=== PATIENT | male | born 1950 | race Caucasian/White ===

== ENCOUNTER 2017-07-11 08:29 | Outpatient (CLI) | payer MEDICARE | END 2017-07-11 08:30 | disposition home or self-care (01) | LOC: BICULT 08:29 | PROVIDERS: ATTEND Internal Medicine Gastroenterology | DX: K74.60 Unspecified cirrhosis of liver (principal); K76.0 Fatty (change of) liver, not elsewhere classified; Z90.49 Acquired absence of other specified parts of digestive tract | CPT/HCPCS: 76705 ==

== ENCOUNTER 2018-01-26 08:00 | Day surgery (SDC) | payer MEDICARE ==
[2018-01-26] MEDS ORDERED: Ondansetron HCl/PF 4 MG/2 ML Vial IVP PRN (12:26)
[2018-01-26] MEDS ORDERED: Meperidine HCl/PF 25 MG/ML VIAL SLOW IVP PRN (12:26)
[2018-01-26] MEDS ORDERED: Promethazine HCl 25 MG/ML VIAL IM PRN (12:26)
[2018-01-26] MEDS ORDERED: HYDROmorphone 2 MG/ML VIAL SLOW IVP PRN (12:26)
[2018-01-26] MEDS ORDERED: Promethazine HCl 25 MG/ML VIAL SLOW IVP PRN (12:26)
--- NOTE | 2018-01-26 14:03 | HP ---
CHIEF COMPLAINT: Lower abdominal pain. HISTORY OF PRESENT ILLNESS: This is a 67-year-old male who has a history of cirrhosis with previous paracentesis in 2009, quit drinking then, cirrhosis is more controlled now, he has not had any issues since, presents with 3 days of lower abdominal discomfort, became more localized in the right lower quadrant today. Pain is 8/10 and sharp, does not radiate. Nothing makes it better, sent over from [facility] in [place]. He was given Zosyn there. Denies history of chronic abdominal pain, infl ammatory bowel disease or Crohn's. PAST MEDICAL HISTORY: Includes allergies, asthma and cirrhosis. PAST SURGICAL HISTORY: Laparoscopic cholecystectomy. MEDICINES TAKEN: See list. ALLERGIES: No known drug allergies. SOCIAL HISTORY: Nondrinker now. No smoking or other drugs. REVIEW OF SYSTEMS: Ten system review of systems is otherwise negative unless described above. PHYSICAL EXAMINATION: HEENT: Sclerae are anicteric. Oropharynx clear. NECK: No lymphadenopathy. CHEST: Clear. HEART: Regular rate and rhythm. ABDOMEN: Soft, tender in the right lower quadrant, localized guarding, no rebound, no abdominal edwige ias. EXTREMITIES: No ischemia or edema to extremities. CT shows acute appendicitis, small infrarenal aneurysm, multiple left lobe lesions and recommend foll owup MRI. PLAN: Laparoscopic appendectomy. Risks, benefits, alternatives discussed. He gives consent. We wi ll do this today.
[2018-01-26] MEDS ORDERED: HYDROcodone/Acetaminophen 5/325 mg Tablet ONE (14:46)
[2018-01-26] MEDS ORDERED: PROPOFOL 200 MG/20 ML VIAL ONE (15:27)
[2018-01-26] MEDS ORDERED: Lidocaine 1% PF 5 ML VIAL ONE (15:27)
[2018-01-26] MEDS ORDERED: PHENYLEPHRINE-NS 100 MCG/ML 10 ML SYRINGE ONE (15:27)
[2018-01-26] MEDS ORDERED: Succinylcholine Chloride 20 MG/ML 10 ml SYRINGE FS ONE (15:27)
--- NOTE | 2018-01-26 18:45 | OP ---
DATE OF PROCEDURE: 01/26/2018 PREOPERATIVE DIAGNOSIS: Acute appendicitis. POSTOPERATIVE DIAGNOSIS: Acute appendicitis. PROCEDURE: Laparoscopic appendectomy. SURGEON: Zack Kent MD ANESTHESIA: General. ESTIMATED BLOOD LOSS: Minimal. COMPLICATIONS: None. SPECIMEN: Appendix. FINDINGS: Appendicitis. TECHNIQUE: The patient was taken to the operating room and placed supine on the table. After general anesthetic was obtained, the abdomen was shaved, prepped, and draped in a sterile fashion. A Mayes catheter had been placed. Incision was made above the umbilicus to cautery dissect down to and score the fascia. Abdominal cavity entered bluntly using a Nadia clamp. Holding stitch of PDS placed on each side of the fascia. Ugarte trocar was placed up pneumoperitoneum was obtained. Suprapubic murm ur port left lower quadrant 5 murmur port were placed under direct visualization. Cecum was rolled o lennie to reveal acute appendicitis monocytes made at the base of the appendix. Laparoscopic stapler wa s fired across the base of the appendix. A vascular reload was fired across the mesoappendix. Appen farrah placed in Endo catch bag and brought out through the Ugarte. A bleeder on the staple line was cl ipped. The right lower quadrant and pelvis was irrigated using sterile solution until returns are cl ear. There was no damage to any intraabdominal structures. All port sites are infiltrated using loc al anesthetic. All ports are removed under camera visualization. Pneumoperitoneum was let down. PD S was used to close the fascial defect above the umbilicus. All incisions were irrigated and closed using 4-0 Monocryl and Dermabond. The patient was en route to recovery in stable condition. All ins trument counts, needle counts, lap counts were correct.
== END 2018-01-26 15:15 | disposition home or self-care (01) ==
LOC: ERS 08:00 → SDC 12:46
PROVIDERS: ATTEND Surgery
PROC: 0DTJ4ZZ Resection of Appendix, Percutaneous Endoscopic Approach (ICD-10-PCS; principal; 2018-01-26)
DX: K35.80 Unspecified acute appendicitis (principal); K74.60 Unspecified cirrhosis of liver; J45.909 Unspecified asthma, uncomplicated; Z79.899 Other long term (current) drug therapy
CPT/HCPCS: 88304; 96374; J2001; J2270; J2704

== ENCOUNTER 2018-03-06 09:22 | Outpatient (CLI) | payer MEDICARE ==
--- NOTE | 2018-03-06 12:30 | MRI ---
MRI ABDOMEN WITH CONTRAST ONLY: Date: 03/06/18 HISTORY: K74.60 cirrhosis. COMPARISON: Ultrasound dated 07/11/17. FINDINGS: Exam is limited as it is with only and not with and without contrast. Therefore, diffusion and T2-jennifer ghted sequences are not obtained, nor was in and out performed. There are multiple nonenhancing foci of both kidneys suggesting cysts. There is dilatation of the inf rarenal abdominal aorta measuring up to 3.3 cm for a craniocaudad length of approximately 4.5 cm. The re are cirrhotic changes of the liver with a nodular contour. No arterial hyperenhancing mass on the portal venous phase with area of poor enhancement segment 4B near the falciform ligament which is not significantly evaluated on this examination and may reflect focal fat. Cirrhotic enhancement of fibr osis is seen in hepatic segment 7 and 8. Spleen is enlarged. Portal vein is patent. No adenopathy. Pancreas is unremarkable. Adrenal glands are unremarkable. No dilated loops of bowel i n the upper abdomen. No abnormal enhancing marrow signal abnormality. IMPRESSION: 1. Incomplete examination as this is a contrast exam only and not a with and without contrast study. No abnormal arterial hyperenhancing mass. 2. Focal poorly enhancing foci within hepatic segment 4B on the portal venous phase which does reny nue to have some very slight decreased enhancement throughout the remainder of the phase and this may reflect focal fat. Given the lack of arterial hyperenhancement and good phases of contrast, this is less likely to be a mass. Follow-up MRI liver protocol in 6 months to 1 year is recommended. 3. Multiple bilateral renal nonenhancing foci, likely cysts, with the right interpolar/superior pole exophytic cystic structure in the mid cortex having a single enhancing septation. Close attention on follow-up imaging is recommended. 4. Infrarenal abdominal aortic aneurysm measuring up to 3.4 cm in size with a craniocaudad length of approximately 4.8 cm. POS: C
[2018-03-06] MEDS ORDERED: Gadobenate Dimeglumine 529 MG/1 ML (20ML VIAL) ONE (12:38)
== END 2018-03-06 09:23 | disposition home or self-care (01) ==
LOC: BICMRI 09:22
PROVIDERS: ATTEND Internal Medicine Gastroenterology
DX: K74.60 Unspecified cirrhosis of liver (principal); R93.2 Abnormal findings on diagnostic imaging of liver and biliary tract; K76.0 Fatty (change of) liver, not elsewhere classified; D12.6 Benign neoplasm of colon, unspecified; I71.4 Abdominal aortic aneurysm, without rupture
CPT/HCPCS: 74182; 82565; A9579

== ENCOUNTER 2018-11-05 14:33 | Outpatient (CLI) | payer MEDICARE ==
--- NOTE | 2018-11-05 17:08 | MRI ---
MRI OF THE ABDOMEN WITHOUT AND WITH CONTRAST: 11/05/18 HISTORY: Cirrhosis. COMPARISON: 03/06/18. TECHNIQUE: Multiplanar and multisequence MRI images were obtained of the abdomen without and with IV contrast. FINDINGS: There is a macronodular appearance of the liver consistent with cirrhosis. The gallbladder is absent. There is a stable area of decreased enhancement on the arterial and portal venous phases immediately adjacent to the falciform ligament on image 30 of 64. This becomes isointense on the delayed phase i mages without washout. No other liver lesions are seen. There are nonenhancing well circumscribed foci of high T2 signal in the bilateral kidneys measuring u p to 7.5 cm in size which represents cysts. The adrenal glands, spleen, and pancreas are unremarkable . No abdominal adenopathy is seen. There is ectasia of the infrarenal aorta which measures 3.8 cm i n greatest dimension. IMPRESSION: 1. Cirrhosis without suspicious liver lesions identified. 2. Bilateral renal cysts. 3. Ectasia of the infrarenal aorta. POS: ASHISH
== END 2018-11-05 14:34 | disposition home or self-care (01) ==
LOC: BICMRI 14:33
PROVIDERS: ATTEND Internal Medicine Gastroenterology
DX: D12.6 Benign neoplasm of colon, unspecified (principal); K74.60 Unspecified cirrhosis of liver; K76.0 Fatty (change of) liver, not elsewhere classified; G47.30 Sleep apnea, unspecified; N28.1 Cyst of kidney, acquired; I77.811 Abdominal aortic ectasia; R93.2 Abnormal findings on diagnostic imaging of liver and biliary tract; Z80.0 Family history of malignant neoplasm of digestive organs
CPT/HCPCS: 74183; 82565

== ENCOUNTER 2019-07-02 12:02 | Outpatient (CLI) | payer MEDICARE ==
--- NOTE | 2019-07-02 14:17 | MRI ---
MRI ABDOMEN WITH AND WITHOUT CONTRAST: TECHNIQUE: Multiplanar, multisequence MR images were obtained of the abdomen with and without IV contrast. COMPARISON: 11/05/2018 03/06/2018 FINDINGS: There are well circumscribed foci of high T2 signal in the bilateral kidneys, measuring up to 7.2 cm in size, which represent cysts. The liver is cirrhotic in appearance. No suspicious hepatic abnormali ties are seen. The gallbladder has been removed. The adrenal glands, spleen and pancreas are unremarkable. There is ectasia of the infrarenal aorta, which measures 4.1 cm in greatest dimension. No marrow sign al abnormality is present. No abdominal adenopathy is seen. IMPRESSION: 1. Cirrhosis without suspicious liver lesions identified. 2. Bilateral renal cysts. 3. Ectasia of the infrarenal aorta. POS: CET
[2019-07-02] MEDS ORDERED: Magnevist 469MG/ML 20 ML VIAL ONE (14:54)
== END 2019-07-02 12:03 | disposition home or self-care (01) ==
LOC: BICMRI 12:02
PROVIDERS: ATTEND Internal Medicine Gastroenterology
DX: K74.60 Unspecified cirrhosis of liver (principal); K76.0 Fatty (change of) liver, not elsewhere classified; N28.1 Cyst of kidney, acquired; I77.811 Abdominal aortic ectasia
CPT/HCPCS: 74183; 82565; A9579

== ENCOUNTER 2019-12-21 09:48 | Outpatient (CLI) | payer MEDICARE ==
--- NOTE | 2019-12-21 12:24 | CT ---
CT ANGIOGRAM OF CHEST WITH IV CONTRAST AND 3D POSTPROCESSING: Date: 12/21/2019 HISTORY: Thoracic aneurysm, heart murmur, SVT. FINDINGS: There are vascular calcifications. The ascending thoracic aorta measures 3.5 cm and the descending th oracic aorta measures 2.8 cm. No intimal flap is seen to suggest dissection. No pleural or pericardia l effusions are identified. No mediastinal, hilar, or axillary lymphadenopathy seen. No pneumothoraces, focal areas of consolidation, or lung masses are seen. There is a 5 mm peripheral nodule in the right upper lobe. The tracheobronchial tree is normal. There are degenerative changes i n the spine. Upper abdominal tomograms demonstrate changes of cirrhosis of the liver and bilateral renal cysts. There is bilateral gynecomastia. IMPRESSION: 1. No CT evidence of thoracic aortic aneurysm/dissection. 2. Peripheral 5 mm right upper lobe lung nodule. A follow-up CT scan of the chest is recommended in 6 months. 3. Cirrhosis of liver. 4. Bilateral renal cysts. 5. Bilateral gynecomastia. CODE LN POS: MELQUIADES
[2019-12-21] MEDS ORDERED: Iopamidol-370 76% 500 ML 1 ML ONE (13:29)
== END 2019-12-21 09:49 | disposition home or self-care (01) ==
LOC: BICCT 09:48
PROVIDERS: ATTEND Internal Medicine Cardiovascular Disease
DX: I47.1 Supraventricular tachycardia (principal); I71.2 Thoracic aortic aneurysm, without rupture; R01.1 Cardiac murmur, unspecified; R91.1 Solitary pulmonary nodule; K74.60 Unspecified cirrhosis of liver; N28.1 Cyst of kidney, acquired; N62 Hypertrophy of breast
CPT/HCPCS: 71275; 82565; Q9967

== ENCOUNTER 2023-02-06 17:55 | Inpatient (IN) | payer MEDICARE ==
[2023-02-06] MEDS ORDERED: dilTIAZem 125 MG/25 ML SDV ONE (18:25)
[2023-02-06] MEDS ORDERED: Aspirin Chewable 81 MG TAB ONE (18:25)
[2023-02-06] MEDS ORDERED: dilTIAZem 25 MG/5 ML VIAL ONE (18:25)
[2023-02-06 18:45] LABS: #Basophils 0.1 thou/uL (0.0-0.2); #Eosinphils 0.1 thou/uL (0.0-0.7); #Monocytes 0.9 thou/uL (0.11-0.59); #Neutrophils 5.9 thou/uL (1.40-6.50); %Basophils 0.6 % (0.0-1.0); %Eosinophils 0.6 % (0.0-10.0); %Monocytes 10.2 % (0.0-10.0); %Neutrophils 69.9 % (42.0-75.0); Hematocrit 52.3 % (42.0-52.0); Hemoglobin 18.1 g/dL (14.0-18.0); Mean Corpuscular HGB CONC 34.6 g/dL (32.0-36.0); Mean Corpuscular Hemoglobin 34.7 pg (27.0-31.0); Mean Corpuscular Volume 100.2 fl (78.0-98.0); Mean Platelet Volume 11.6 fL (7.4-10.4); RBC Distribution Width 12.9 % (11.5-14.5); Red Blood Cell (RBC) Count 5.22 mill/uL (4.70-6.10); White Blood Cell (WBC) Count 8.5 10x3/uL (4.8-10.8)
[2023-02-06 18:47] LABS: Platelet Count 113 10x3/uL (130-400)
[2023-02-06 19:06] LABS: ALT (SGPT) 39 U/L (8-55); AST (SGOT) 28 U/L (5-34); Albumin 4.5 g/dL (3.4-4.8); Alkaline Phosphatase 60 U/L (40-110); Anion Gap 14 mmol/L (10-20); BUN (Urea Nitrogen) 12 mg/dL (8.4-25.7); Bilirubin, Total 1.3 mg/dL (0.2-1.2); Calc. Creatinine Clearance 0 mL/min (70-130); Calcium 9.6 mg/dL (7.8-10.44); Carbon Dioxide 28 mmol/L (23-31); Chloride 101 mmol/L (98-107); Estimated GFR 65; Glucose 90 mg/dL (83-110); Potassium 3.9 mmol/L (3.5-5.1); Protein, Total 7.5 g/dL (5.8-8.1); Sodium 139 mmol/L (136-145)
[2023-02-06 19:11] LABS: Troponin I Less than 0.010 ng/mL (< 0.028)
[2023-02-06] MEDS ORDERED: Furosemide 40 MG/4 ML VIAL ONE (19:30)
[2023-02-06] MEDS ORDERED: Acetaminophen 325 MG TAB PO PRN (20:58)
[2023-02-06] MEDS ORDERED: Senokot S 8.6-50 MG TAB PO PRN (20:58)
[2023-02-06] MEDS ORDERED: Ondansetron ODT 4 MG TAB PO PRN (20:58)
[2023-02-06] MEDS ORDERED: Calcium Carbonate 500 MG ChewTAB PO PRN (20:58)
[2023-02-06 22:26] LABS: Troponin I Less than 0.010 ng/mL (< 0.028)
[2023-02-06] MEDS ORDERED: Methocarbamol 500 MG TAB PO PRN (22:38)
[2023-02-06] MEDS ORDERED: HYDROcodone/Acetaminophen 5/325 mg Tablet PO SCH (22:45)
[2023-02-06 22:46] VITALS: BMI 33.5
[2023-02-06] MEDS: Carvedilol 3.125 MG TAB PO SCH (22:54)
[2023-02-06] MEDS: Famotidine 20 MG TAB PO SCH (22:54)
[2023-02-06] MEDS: Ipratropium/Albuterol 3 ML NEB NEB SCH (23:31)
[2023-02-07 01:40] LABS: Troponin I Less than 0.010 ng/mL (< 0.028)
[2023-02-07 04:09] LABS: #Basophils 0.1 thou/uL (0.0-0.2); #Eosinphils 0.1 thou/uL (0.0-0.7); #Monocytes 0.7 thou/uL (0.11-0.59); #Neutrophils 4.5 thou/uL (1.40-6.50); %Basophils 0.8 % (0.0-1.0); %Eosinophils 1.7 % (0.0-10.0); %Lymphocytes 19.5 % (21.0-51.0); %Neutrophils 67.5 % (42.0-75.0); Hematocrit 45.5 % (42.0-52.0); Hemoglobin 15.7 g/dL (14.0-18.0); Mean Corpuscular HGB CONC 34.5 g/dL (32.0-36.0); Mean Corpuscular Hemoglobin 34.7 pg (27.0-31.0); Mean Corpuscular Volume 100.7 fl (78.0-98.0); Mean Platelet Volume 11.8 fL (7.4-10.4); Platelet Count 94 10x3/uL (130-400); RBC Distribution Width 12.9 % (11.5-14.5); Red Blood Cell (RBC) Count 4.52 mill/uL (4.70-6.10); White Blood Cell (WBC) Count 6.6 10x3/uL (4.8-10.8)
[2023-02-07 04:36] LABS: ALT (SGPT) 28 U/L (8-55); AST (SGOT) 21 U/L (5-34); Albumin 3.7 g/dL (3.4-4.8); Alkaline Phosphatase 52 U/L (40-110); BUN (Urea Nitrogen) 14 mg/dL (8.4-25.7); Bilirubin, Total 1.1 mg/dL (0.2-1.2); Calc. Creatinine Clearance 84 mL/min (70-130); Calcium 8.7 mg/dL (7.8-10.44); Carbon Dioxide 26 mmol/L (23-31); Chloride 102 mmol/L (98-107); Estimated GFR 71; Globulin 2.2 g/dL (2.4-3.5); Glucose 119 mg/dL (83-110); Magnesium 1.8 mg/dL (1.6-2.6); Potassium 3.3 mmol/L (3.5-5.1); Protein, Total 5.9 g/dL (5.8-8.1); Sodium 139 mmol/L (136-145)
[2023-02-07] MEDS: dilTIAZem 125 MG in Sodium Chloride 0.9% 100 ML IVPB SCH ×2 (04:44→17:42)
[2023-02-07 04:47] LABS: Anion Gap 14 mmol/L (10-20)
[2023-02-07] MEDS: Mometasone 200 MCG/Formoterol 5 MCG 120 PUFF INHALER INH SCH ×3 (07:13→18:39)
[2023-02-07] MEDS: Ipratropium/Albuterol 3 ML NEB NEB SCH (07:13)
[2023-02-07] MEDS ORDERED: Albuterol 200 PUFF (6.7GM INHALER) INH PRN (08:35)
[2023-02-07] MEDS ORDERED: Apixaban 5 MG TAB PO SCH (09:00)
[2023-02-07] MEDS ORDERED: Lisinopril 2.5 MG TAB PO SCH (09:00)
[2023-02-07] MEDS ORDERED: Aspirin Chewable 81 MG TAB PO SCH (09:00)
[2023-02-07] MEDS: Carvedilol 3.125 MG TAB PO SCH (09:23)
[2023-02-07] MEDS: Thiamine 100 MG TAB PO SCH (09:23)
[2023-02-07] MEDS: Folic Acid 1 MG TAB PO SCH (09:23)
[2023-02-07] MEDS: Famotidine 20 MG TAB PO SCH ×2 (09:25→21:11)
[2023-02-07] MEDS: Niacin 500 MG TAB PO SCH (09:26)
[2023-02-07] MEDS: Multivit, Chewable SF 1 TAB PO SCH (09:26)
[2023-02-07] MEDS: Azelastine 137 MCG/NASAL Spray 30 ML NS SCH ×2 (09:27→21:09)
[2023-02-07] MEDS ORDERED: diphenhydrAMINE 50 MG/ML VIAL ONE (10:16)
[2023-02-07] MEDS ORDERED: methylPREDNISolone Sod Succ 40 MG VIAL ONE (10:18)
[2023-02-07] MEDS ORDERED: Famotidine/PF 20 mg/2ml Vial SLOW IVP SCH (10:30)
[2023-02-07] MEDS ORDERED: diphenhydrAMINE 50 MG/ML VIAL IVP SCH (10:30)
[2023-02-07] MEDS ORDERED: methylPREDNISolone Sod Succ 40 MG VIAL IVP SCH (10:30)
[2023-02-07] MEDS ORDERED: Lorazepam 2 MG/ML VIAL SLOW IVP SCH ×2 (11:00→11:15)
[2023-02-07] MEDS ORDERED: Potassium Chloride 20 MEQ in Premix Bag 1 BAG IVPB SCH (11:15)
[2023-02-07] MEDS ORDERED: Methocarbamol 0.5 GM in Sodium Chloride 0.9% 100 ML IVPB SCH (11:15)
[2023-02-07] MEDS ORDERED: Sodium Chloride 0.45% 1,000 ML IV SCH (11:30)
[2023-02-07] MEDS ORDERED: Melatonin 3 MG TAB PO SCH (21:00)
[2023-02-07] MEDS ORDERED: Loratadine 10 MG TAB PO SCH (21:00)
[2023-02-07] MEDS ORDERED: guaiFENesin/DM ER PO SCH (21:00)
[2023-02-07] MEDS: Flecainide 50 MG TAB PO SCH (21:10)
[2023-02-08] MEDS: dilTIAZem 125 MG in Sodium Chloride 0.9% 100 ML IVPB SCH (00:50)
[2023-02-08] MEDS: Mometasone 200 MCG/Formoterol 5 MCG 120 PUFF INHALER INH SCH ×2 (07:41→19:06)
[2023-02-08] MEDS ORDERED: Aspirin 81 mg Enteric Coated Tablet PO SCH (09:00)
[2023-02-08 10:32] LABS: #Monocytes 0.7 thou/uL (0.11-0.59); #Neutrophils 10.5 thou/uL (1.40-6.50); %Basophils 0.2 % (0.0-1.0); %Eosinophils 0.1 % (0.0-10.0); %Lymphocytes 8.1 % (21.0-51.0); %Monocytes 5.5 % (0.0-10.0); %Neutrophils 85.6 % (42.0-75.0); Hematocrit 46.9 % (42.0-52.0); Hemoglobin 16.2 g/dL (14.0-18.0); Mean Corpuscular HGB CONC 34.5 g/dL (32.0-36.0); Mean Corpuscular Hemoglobin 34.8 pg (27.0-31.0); Mean Corpuscular Volume 100.6 fl (78.0-98.0); RBC Distribution Width 12.6 % (11.5-14.5); Red Blood Cell (RBC) Count 4.66 mill/uL (4.70-6.10); White Blood Cell (WBC) Count 12.2 10x3/uL (4.8-10.8)
[2023-02-08 10:33] LABS: Platelet Count 107 10x3/uL (130-400)
[2023-02-08 10:55] LABS: ALT (SGPT) 30 U/L (8-55); AST (SGOT) 23 U/L (5-34); Albumin 3.8 g/dL (3.4-4.8); Alkaline Phosphatase 44 U/L (40-110); Anion Gap 15 mmol/L (10-20); BUN (Urea Nitrogen) 16 mg/dL (8.4-25.7); Bilirubin, Total 0.9 mg/dL (0.2-1.2); Calc. Creatinine Clearance 110 mL/min (70-130); Calcium 8.8 mg/dL (7.8-10.44); Carbon Dioxide 23 mmol/L (23-31); Estimated GFR 92; Globulin 2.4 g/dL (2.4-3.5); Glucose 99 mg/dL (83-110); Potassium 4.1 mmol/L (3.5-5.1); Protein, Total 6.2 g/dL (5.8-8.1); Sodium 134 mmol/L (136-145)
[2023-02-08 10:57] LABS: Chloride 100 mmol/L (98-107)
[2023-02-08] MEDS ORDERED: fentaNYL 50 mcg/mL 1 mL Vial ONE (11:50)
[2023-02-08] MEDS ORDERED: PROPOFOL 20 ML ONE (11:50)
[2023-02-08] MEDS: Famotidine 20 MG TAB PO SCH (12:56)
[2023-02-08] MEDS: Multivit, Chewable SF 1 TAB PO SCH (12:57)
[2023-02-08] MEDS: Folic Acid 1 MG TAB PO SCH (12:57)
[2023-02-08] MEDS: Niacin 500 MG TAB PO SCH (12:57)
[2023-02-08] MEDS: Thiamine 100 MG TAB PO SCH (12:57)
[2023-02-08] MEDS: Flecainide 50 MG TAB PO SCH (12:57)
[2023-02-08] MEDS: Azelastine 137 MCG/NASAL Spray 30 ML NS SCH (12:59)
[2023-02-08 20:49] VITALS: TEMP 97.9
== END 2023-02-08 20:10 | disposition home or self-care (01) | DRG 309 ==
LOC: ERS 17:55 → IMCU/EMU 20:58
PROVIDERS: ADMIT Student in an Organized Health Care Education/Training Program; ATTEND Internal Medicine
PROC: B24BZZ4 Ultrasonography of Heart with Aorta, Transesophageal (ICD-10-PCS; principal; 2023-02-08)
PROC: 5A2204Z Restoration of Cardiac Rhythm, Single (ICD-10-PCS; 2023-02-08)
DX: I48.91 Unspecified atrial fibrillation (principal); E87.1 Hypo-osmolality and hyponatremia; Z87.891 Personal history of nicotine dependence; Z90.49 Acquired absence of other specified parts of digestive tract; Z98.890 Other specified postprocedural states; Z79.899 Other long term (current) drug therapy; I50.9 Heart failure, unspecified; J44.9 Chronic obstructive pulmonary disease, unspecified; K70.30 Alcoholic cirrhosis of liver without ascites; E87.6 Hypokalemia
CPT/HCPCS: 36415; 71045; 80053; 83735; 83880; 84443; 84484; 85025; 92960; 93005; 93010; 93306; 93312; 94640; 96365; 96366; 96375; 96376; J1200; J1650; J1940; J2060; J2704; J2800; J2920; J3010; J3480; J3490; J7620; S0028

== ENCOUNTER 2023-02-18 16:24 | Inpatient (IN) | payer MEDICARE ==
[2023-02-18] MEDS ORDERED: Metoprolol Tartrate 5 MG/5 ML VIAL ONE (17:02)
[2023-02-18] MEDS ORDERED: Midazolam HCl 5 mg/ml Vial ONE (17:13)
[2023-02-18 17:19] LABS: #Basophils 0.1 thou/uL (0.0-0.2); #Eosinphils 1.9 thou/uL (0.0-0.7); #Monocytes 0.9 thou/uL (0.11-0.59); #Neutrophils 12.9 thou/uL (1.40-6.50); %Basophils 0.6 % (0.0-1.0); %Lymphocytes 8.4 % (21.0-51.0); %Neutrophils 73.6 % (42.0-75.0); Hematocrit 53.3 % (42.0-52.0); Mean Corpuscular HGB CONC 35.6 g/dL (32.0-36.0); Mean Corpuscular Hemoglobin 34.7 pg (27.0-31.0); Mean Corpuscular Volume 97.4 fl (78.0-98.0); Mean Platelet Volume 11.2 fL (7.4-10.4); Platelet Count 234 10x3/uL (130-400); RBC Distribution Width 12.4 % (11.5-14.5); Red Blood Cell (RBC) Count 5.47 mill/uL (4.70-6.10); White Blood Cell (WBC) Count 17.6 10x3/uL (4.8-10.8)
[2023-02-18 17:44] LABS: ALT (SGPT) 37 U/L (8-55); AST (SGOT) 25 U/L (5-34); Albumin 3.6 g/dL (3.4-4.8); Alkaline Phosphatase 52 U/L (40-110); Anion Gap 15 mmol/L (10-20); BUN (Urea Nitrogen) 29 mg/dL (8.4-25.7); Calc. Creatinine Clearance 0 mL/min (70-130); Carbon Dioxide 24 mmol/L (23-31); Chloride 96 mmol/L (98-107); Estimated GFR 52; Globulin 2.4 g/dL (2.4-3.5); Glucose 97 mg/dL (83-110); Potassium 5.3 mmol/L (3.5-5.1); Sodium 130 mmol/L (136-145)
[2023-02-18 17:54] LABS: Troponin I Less than 0.010 ng/mL (< 0.028)
[2023-02-18 18:02] LABS: INR-International Normal Ratio 1.2; PTT 31.7 sec (22.9-36.1); Prothrombin Time 15.5 sec (12.0-14.7)
[2023-02-18 18:09] LABS: Magnesium 1.9 mg/dL (1.6-2.6)
[2023-02-18] MEDS ORDERED: Warfarin Sodium 7.5 MG TAB PO SCH (20:15)
[2023-02-18] MEDS ORDERED: Aspirin Chewable 81 MG TAB ONE (20:19)
[2023-02-18] MEDS ORDERED: methylPREDNISolone Sod Succ 40 MG VIAL IVP SCH (21:30)
[2023-02-18 22:06] LABS: Troponin I Less than 0.010 ng/mL (< 0.028)
[2023-02-18 22:33] LABS: Troponin I Less than 0.010 ng/mL (< 0.028)
[2023-02-18 22:53] VITALS: BMI 34.3
[2023-02-19 00:12] LABS: Troponin I Less than 0.010 ng/mL (< 0.028)
[2023-02-19 05:27] LABS: #Basophils 0.1 thou/uL (0.0-0.2); #Eosinphils 0.6 thou/uL (0.0-0.7); #Monocytes 0.3 thou/uL (0.11-0.59); #Neutrophils 9.3 thou/uL (1.40-6.50); %Basophils 0.8 % (0.0-1.0); %Eosinophils 5.5 % (0.0-10.0); %Lymphocytes 7.5 % (21.0-51.0); %Monocytes 2.6 % (0.0-10.0); %Neutrophils 81.9 % (42.0-75.0); Hematocrit 47.1 % (42.0-52.0); Hemoglobin 16.5 g/dL (14.0-18.0); Mean Corpuscular Volume 96.9 fl (78.0-98.0); Mean Platelet Volume 11.3 fL (7.4-10.4); Platelet Count 170 10x3/uL (130-400); RBC Distribution Width 12.4 % (11.5-14.5); Red Blood Cell (RBC) Count 4.86 mill/uL (4.70-6.10); White Blood Cell (WBC) Count 11.4 10x3/uL (4.8-10.8)
[2023-02-19 05:39] LABS: INR-International Normal Ratio 1.2; Prothrombin Time 15.6 sec (12.0-14.7)
[2023-02-19 05:50] LABS: ALT (SGPT) 31 U/L (8-55); AST (SGOT) 19 U/L (5-34); Albumin 3.2 g/dL (3.4-4.8); Alkaline Phosphatase 46 U/L (40-110); Anion Gap 14 mmol/L (10-20); BUN (Urea Nitrogen) 27 mg/dL (8.4-25.7); Bilirubin, Total 0.6 mg/dL (0.2-1.2); Calc. Creatinine Clearance 87 mL/min (70-130); Calcium 8.6 mg/dL (7.8-10.44); Carbon Dioxide 20 mmol/L (23-31); Chloride 102 mmol/L (98-107); Estimated GFR 72; Glucose 135 mg/dL (83-110); Potassium 4.7 mmol/L (3.5-5.1); Protein, Total 5.2 g/dL (5.8-8.1); Sodium 131 mmol/L (136-145)
[2023-02-19 05:57] LABS: Troponin I Less than 0.010 ng/mL (< 0.028)
[2023-02-19] MEDS ORDERED: Albuterol 200 PUFF (6.7GM INHALER) INH PRN (07:40)
[2023-02-19] MEDS: Metoprolol Tartrate 50 MG TAB PO SCH ×2 (08:43→19:43)
[2023-02-19] MEDS: methylPREDNISolone Sod Succ 40 MG VIAL IVP SCH (08:44)
[2023-02-19] MEDS: Famotidine 20 MG TAB PO SCH ×2 (08:45→19:42)
[2023-02-19] MEDS ORDERED: Azelastine 137 MCG/NASAL Spray 30 ML NS SCH ×2 (09:00→18:30)
[2023-02-19] MEDS ORDERED: Non-Formulary Item 1 EACH (Budesonide-Formoterol [Symbicort 160-4.5] 160 MG/4.5 MG Aer) INH SCH (09:00)
[2023-02-19] MEDS ORDERED: Loratadine 10 MG TAB PO SCH ×2 (10:15→21:00)
[2023-02-19] MEDS: Ipratropium Bromide 2.5 ml Neb NEB SCH ×2 (15:28→18:21)
[2023-02-19] MEDS ORDERED: Warfarin Sodium 5 MG TAB PO SCH (17:00)
[2023-02-19] MEDS: Mometasone 200 MCG/Formoterol 5 MCG 120 PUFF INHALER INH SCH (18:21)
[2023-02-19] MEDS ORDERED: [UNRECOGNIZED DRUG - OTHER] PO SCH (21:00)
[2023-02-19] MEDS ORDERED: DEXTROMETHORPHAN PO SCH (21:00)
[2023-02-19] MEDS ORDERED: guaiFENesin/DM ER PO SCH (21:00)
[2023-02-19] MEDS ORDERED: Non-Formulary Item 1 EACH (Melatonin [Melatonin] 10 MG Tablet) PO SCH (21:00)
[2023-02-19] MEDS ORDERED: GUAIFENESIN PO SCH (21:00)
[2023-02-19] MEDS ORDERED: Non-Formulary Item 1 EACH (Cetirizine Hcl [Zyrtec] 10 MG Capsule) PO SCH ×2 (21:00)
[2023-02-19] MEDS ORDERED: Melatonin 3 MG TAB PO SCH (21:00)
[2023-02-19] MEDS ORDERED: Non-Formulary Item 1 EACH (Tiotropium Bromide 4 GM Inhaler) INH SCH (21:00)
[2023-02-20] MEDS: Ipratropium Bromide 2.5 ml Neb NEB SCH ×2 (00:51→07:24)
[2023-02-20 05:42] LABS: #Basophils 0.1 thou/uL (0.0-0.2); #Eosinphils 1.8 thou/uL (0.0-0.7); #Monocytes 1.1 thou/uL (0.11-0.59); #Neutrophils 14.7 thou/uL (1.40-6.50); %Basophils 0.6 % (0.0-1.0); %Lymphocytes 8.8 % (21.0-51.0); %Monocytes 5.6 % (0.0-10.0); %Neutrophils 74.1 % (42.0-75.0); Hemoglobin 16.4 g/dL (14.0-18.0); Mean Corpuscular HGB CONC 34.9 g/dL (32.0-36.0); Mean Corpuscular Hemoglobin 34.1 pg (27.0-31.0); Mean Corpuscular Volume 97.7 fl (78.0-98.0); Mean Platelet Volume 11.2 fL (7.4-10.4); Platelet Count 217 10x3/uL (130-400); RBC Distribution Width 12.4 % (11.5-14.5); Red Blood Cell (RBC) Count 4.81 mill/uL (4.70-6.10); White Blood Cell (WBC) Count 19.8 10x3/uL (4.8-10.8)
[2023-02-20 05:54] LABS: INR-International Normal Ratio 1.6; Prothrombin Time 19.7 sec (12.0-14.7)
[2023-02-20 06:46] LABS: Anion Gap 16 mmol/L (10-20); BUN (Urea Nitrogen) 21 mg/dL (8.4-25.7); Calc. Creatinine Clearance 103 mL/min (70-130); Carbon Dioxide 19 mmol/L (23-31); Chloride 103 mmol/L (98-107); Estimated GFR 88; Glucose 99 mg/dL (83-110); Potassium 4.4 mmol/L (3.5-5.1); Sodium 134 mmol/L (136-145)
[2023-02-20] MEDS: Mometasone 200 MCG/Formoterol 5 MCG 120 PUFF INHALER INH SCH (07:24)
[2023-02-20] MEDS: Famotidine 20 MG TAB PO SCH (08:54)
[2023-02-20] MEDS: methylPREDNISolone Sod Succ 40 MG VIAL IVP SCH (08:54)
[2023-02-20] MEDS: Metoprolol Tartrate 50 MG TAB PO SCH (08:54)
[2023-02-20 11:49] VITALS: BP 126/76; TEMP 97.6
== END 2023-02-20 15:32 | disposition left against medical advice (07) | DRG 309 ==
LOC: ERS 16:24 → 2SW 19:43 → OBSVTOIN 02-19 13:21
PROVIDERS: ADMIT Internal Medicine Nephrology; ATTEND Emergency Medicine
PROC: 5A2204Z Restoration of Cardiac Rhythm, Single (ICD-10-PCS; principal; 2023-02-18)
DX: I48.19 Other persistent atrial fibrillation (principal); N17.9 Acute kidney failure, unspecified; I10 Essential (primary) hypertension; E78.5 Hyperlipidemia, unspecified; E66.9 Obesity, unspecified; I48.0 Paroxysmal atrial fibrillation; L23.3 Allergic contact dermatitis due to drugs in contact with skin; T49.95XA Adverse effect of unspecified topical agent, initial encounter; K70.30 Alcoholic cirrhosis of liver without ascites; Z98.890 Other specified postprocedural states; Z79.899 Other long term (current) drug therapy; Z79.51 Long term (current) use of inhaled steroids; Z90.49 Acquired absence of other specified parts of digestive tract; Z68.34 Body mass index [BMI] 34.0-34.9, adult
CPT/HCPCS: 36415; 71045; 80048; 80053; 83735; 83880; 84484; 85025; 85610; 85730; 92960; 93005; 96372; 96374; 96375; 96376; G0378; J1650; J2250; J2920